=== PATIENT | female | born 1960 | race Caucasian/White ===

== ENCOUNTER 2019-03-18 20:21 | Observation (INO) ==
[2019-03-19] MEDS ORDERED: Naloxone 0.4 MG/ML INJ IVP PRN (00:45)
[2019-03-19] MEDS ORDERED: *HR* Heparin 5,000 UNIT/ML VIAL IVP ONE (01:51)
[2019-03-19] MEDS ORDERED: *HR* Heparin 5,000 UNIT/ML VIAL IVP PRN ×2 (01:51)
[2019-03-19] MEDS: Nitroglycerin 0.4 MG TAB.SUBL SL SCH ×2 (02:13→02:29)
[2019-03-19] MEDS ORDERED: Morphine Sulfate 2 MG/ML SYRINGE IVP PRN (02:26)
[2019-03-19] MEDS: Heparin 25,000 UNIT/250 ML D5W 25,000 UNIT/250 ML IV.SOLN IVC SCH (02:36)
[2019-03-19 02:45] LABS: Mean Corpuscular HGB Conc 34.1 g/dL (31.6-35.5); Mean Corpuscular Hemoglobin 30.7 pg (28.0-33.3); Mean Platelet Volume 8.9 fL (9.4-12.4); Platelet Count 376 K/mcL (140-400); Red Blood Count 4.89 M/mcL (3.82-4.97); Red Cell Distribution Width 12.7 % (11.5-14.5)
[2019-03-19 02:49] LABS: Prothrombin Time 11.7 Seconds (9.4-12.1)
[2019-03-19 02:50] LABS: Heparin anti-factor XA UFH 0.03 IU/mL (0.30-0.70)
[2019-03-19 06:58] LABS: Alanine Aminotransferase 17 Units/L (7-52); Albumin 3.8 g/dL (3.5-5.7); Albumin/Globulin Ratio 1.6 (1.1-2.2); Alkaline Phosphatase 57 Units/L (34-104); Aspartate Amino Transferase 55 Units/L (13-39); BUN/Creatinine Ratio 21 (6-26); Bilirubin,Total 0.4 mg/dL (0.3-1.0); Blood Urea Nitrogen 11 mg/dL (8-23); Calcium 8.4 mg/dL (8.6-10.3); Carbon Dioxide 21 mEq/L (23-29); Chloride 105 mEq/L (98-107); Globulin 2.4 g/dL (2.4-3.5); Glucose 120 mg/dL (70-105); Magnesium 1.9 mg/dL (1.6-2.6); Osmolality,Calculated 285 (280-300); Phosphorous 2.6 mg/dL (2.7-4.5); Potassium 3.7 mEq/L (3.5-5.1); Sodium 137 mEq/L (136-145); Total Protein 6.2 g/dL (6.4-8.9); eGFR For African Americans > 60 (> 60); eGFR For Non-African Americans > 60 (> 60)
[2019-03-19] MEDS ORDERED: Nitroglycerin 0.4 MG TAB.SUBL SL PRN (08:26)
[2019-03-19] MEDS: Aspirin 81 MG TAB.CHEW PO SCH (08:47)
[2019-03-19] MEDS ORDERED: Heparin 1,000 UNITS/500 mL 500 ML ONE (14:31)
[2019-03-19] MEDS ORDERED: Nitroglycerin 1,000 MCG/10 ML VIAL IV ONE (14:31)
[2019-03-19] MEDS ORDERED: *HR* Heparin 10,000 UNIT/10 ML VIAL ONE (14:31)
[2019-03-19] MEDS ORDERED: ISOVUE-370 200 ML INFUS..BTL ONE (14:31)
[2019-03-19] MEDS ORDERED: 0.9 % Sodium Chloride 2,000 ML ONE (14:31)
[2019-03-19] MEDS ORDERED: *HR* Midazolam HCl 2 MG/2 ML VIAL ONE (14:34)
[2019-03-19] MEDS ORDERED: Verapamil 5 MG/2 ML VIAL ONE (14:44)
[2019-03-19] MEDS ORDERED: Acetaminophen 325 MG TABLET PO PRN (15:16)
[2019-03-20] MEDS ORDERED: Heparin 25,000 UNIT/250 ML D5W 25,000 UNIT/250 ML IV.SOLN IVC SCH (02:00)
[2019-03-20] MEDS ORDERED: *HR* Heparin 5,000 UNIT/ML VIAL IVP PRN ×2 (02:00)
[2019-03-20] MEDS ORDERED: *HR* Heparin 5,000 UNIT/ML VIAL IVP ONE (02:00)
[2019-03-20 02:22] LABS: Basophils # 0.1 K/mcL (0.0-0.2); Basophils % 0.5 %; Eosinophils # 0.1 K/mcL (0.0-0.6); Eosinophils % 0.7 %; Hematocrit 43.9 % (35.3-44.9); Immature Granulocytes % 0.5 % (0-4); Lymphocytes # 4.4 K/mcL (0.6-4.6); Lymphocytes % 30.8 %; Mean Corpuscular HGB Conc 34.2 g/dL (31.6-35.5); Mean Corpuscular Hemoglobin 30.7 pg (28.0-33.3); Mean Corpuscular Volume 89.8 fL (83.0-100.0); Mean Platelet Volume 9.2 fL (9.4-12.4); Monocytes # 1.3 K/mcL (0.0-1.3); Monocytes % 9.3 %; Neutrophils # 8.4 K/mcL (1.6-8.9); Platelet Count 348 K/mcL (140-400); Red Blood Count 4.89 M/mcL (3.82-4.97); Red Cell Distribution Width 12.8 % (11.5-14.5); Segmented Neutrophils % 58.2 %; White Blood Count 14.4 K/mcL (4.3-11.1)
[2019-03-20 02:28] LABS: INR 1.1; Prothrombin Time 12.1 Seconds (9.4-12.1)
[2019-03-20 02:29] LABS: Heparin anti-factor XA UFH 0.01 IU/mL (0.30-0.70)
[2019-03-20 02:51] LABS: BUN/Creatinine Ratio 16 (6-26); Blood Urea Nitrogen 8 mg/dL (8-23); Calcium 8.7 mg/dL (8.6-10.3); Carbon Dioxide 21 mEq/L (23-29); Chloride 106 mEq/L (98-107); Chol/HDL Ratio 4.1 (0-4.9); Glucose 109 mg/dL (70-105); Osmolality,Calculated 283 (280-300); Potassium 3.9 mEq/L (3.5-5.1); Sodium 137 mEq/L (136-145); eGFR For African Americans > 60 (> 60); eGFR For Non-African Americans > 60 (> 60)
[2019-03-20] MEDS: Heparin 25,000 UNIT/250 ML D5W 25,000 UNIT/250 ML IV.SOLN IVC SCH (03:12)
[2019-03-20] MEDS: Aspirin 81 MG TAB.CHEW PO SCH (08:58)
[2019-03-20] MEDS ORDERED: Isosorbide MONOnitrate (24 HR) 30 MG TAB.ER.24H PO SCH (09:00)
[2019-03-20 11:15] VITALS: BP 98/62
[2019-03-20] MEDS ORDERED: Perflutren Lipid Microsphere 1.3 ML in 0.9 % Sodium Chloride 8.7 ML IVP ONE (12:11)
[2019-03-20] MEDS ORDERED: *HR* Heparin 5,000 UNIT/ML VIAL SQ SCH (14:00)
== END 2019-03-20 15:43 | disposition home or self-care (01) ==
LOC: 3BNU
PROVIDERS: ADMIT Internal Medicine; ATTEND Internal Medicine